=== PATIENT | female | born 1960 | race Caucasian/White ===

== ENCOUNTER 2020-01-16 10:00 | Inpatient (IN) | payer OTHER ==
[~2020-01-16] VITALS: Ht 165.1 cm; Wt 83.9 kg
[~2020-01-16 10:00] MED LIST: LEVOTHYROXINE 0.15MG PO; LITHIUM CARBON300 M3 PO; METFORMIN HCL500 MG PO; MOBIC7.5 MG PO; TRAZODONE HCL50 MG PO; XANAX1 MG PO
[2020-01-16 10:37] VITALS: BP 107/77
--- NOTE | 2020-01-16 13:00 | NUR ---
KANDI completed 96 hour hold documents for pt and faxed them to the pebbles and Walt Burk. Pt's 96 hour hold will January 23, 2020 @ 11:30 am. While KANDI was explaining to pt her rights, pt said she did not attempt to jump out of her car and wanted to contact her daughter Calista. SW did so, and Calista did not retract her statement and told pt that she believes she needs to be there. SW team will continue to follow pt during her stay on this unit.
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
[2020-01-16 20:56] VITALS: BP 144/81
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
[2020-01-17 04:55] VITALS: BP 144/81
[2020-01-17 06:25] LABS: HEMATOCRIT 39.9 % (37.0-47.0); HEMOGLOBIN 13.3 gm/dL (12.0-15.0); MCH 29.4 pg (26.0-34.0); MCHC 33.4 g/dL (28.0-37.0); MCV 87.9 fL (80.0-100.0); RBC 4.54 mil/uL (4.20-5.00); RDW 13.9 % (10.5-14.5); WBC 4.1 thou/uL (4.0-11.0)
[2020-01-17 06:43] LABS: CALCIUM 8.4 mg/dL (8.5-10.1); CREATININE 0.6 mg/dL (0.6-1.0); MAGNESIUM 1.8 mg/dL (1.8-2.4); POTASSIUM 3.1 mmol/L (3.5-5.1)
[2020-01-17 07:15] VITALS: BP 132/85
[2020-01-17 11:36] VITALS: BP 105/71
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
--- NOTE | 2020-01-17 15:06 | NUR ---
Patient's supply chain specialist met with pt. this afternoon.
--- NOTE | 2020-01-17 18:44 | NUR ---
Up ambulating in unit without s/o distress. Alert and orientated to self and place but not to time or situation. Does not think she needs to be here and wants to be discharged. Denies SI/HI. Paranoid about anyone/anything touching her or her medications/water stating it is contaminated. Refused all AM meds stating that she doesn't need them despite 3 approaches. Threw KCL in trash. 5 mg Haldol given IM per R deltoid with assistance of 3 staff. Did take KCL and Metformin with encouragement later in day. Breath sounds clear t/o. Reg HR auscultated. Color pink with brisk capillary refill and palpable peripheral pulses. No edema. Independent with voiding. Active bowel sounds over soft, rounded abdomen. Old circular healing lesions on buttocks and perineal area. States feet hurt but not enough to take medication. Peeling skin on arms and top of feet have fading sunburn. No s/o distress/agitation t/o day. Dr. Martinez ordered additional KCL. Clarified that she had taken 40meq KCL at 1330 PO. 1800 dose dced. Currently sleeping in room.
[2020-01-17 19:16] VITALS: BP 140/78
[2020-01-17 20:00] VITALS: BP 140/78
--- NOTE | 2020-01-17 23:50 | NUR ---
Assumed care of patient this pm shift. Patient sleeping in her room. Patient was rousable with verbal stimulation. Patient denies pain. Patient denies hi/si. Patient did not take night time medications and was given an im injection instead. Patients assessment shows clear breath sounds, active bowel sounds, and s1 s2 heard with auscultation. Patient very quiet this evening. Patient did get up and came to the dining room. Patient was asked to be dressed when she is interacting with staff and peers. We will continue to monitor per hospital protocol.
--- NOTE | 2020-01-18 07:58 | EKG ---
[facility] [place] [address] ELECTROCARDIOGRAM REPORT Name: ALVARO NATARAJAN [facility] IN M.R.#: [id number] Admission: 01/16/20 Attend Phys: Jose Juan Mohan DO Discharge: Date of : 64 Report #: [id number] THIS REPORT FOR: cc: FAM - Family physician unknown Yobani Larson Luis F. MD ~ THIS REPORT FOR: //name// [facility] Test Date: 2020-01-17 Test Time: 10:51:11 Pat Name: ALVARO NATARAJAN Department: Room: [facility] B Gender: F Hr Analyst: ZOE : 1960 Requested By: Devin Martinez Order Number: [id number] MD: Charles Oliver Measurements Intervals [place] Rate: 42 P: 9 ID: [id number] QRS: 21 QRSD: 95 T: 34 QT: 509 QTc: 426 Interpretive Statements Bradycardia with irregular rate Low voltage, extremity leads Compared to ECG 09/28/2016 16:47:36 Sinus rhythm no longer present ST (T wave) deviation no longer present Electronically Signed On 01-18-2020 7:57:08 CDT by Charles Oliver [email or web address] <ELECTRONICALLY SIGNED> By: Charles Oliver MD 01/18/20 0757 1051 1051 Charles Oliver MD /EPI
[2020-01-18 11:34] LABS: URINE BILIRUBIN NEGATIVE (Negative); URINE BLOOD NEGATIVE (Negative); URINE CLARITY CLEAR; URINE COLOR YELLOW; URINE GLUCOSE-RANDOM* NEGATIVE (Negative); URINE KETONES NEGATIVE (Negative); URINE LEUKOCYTES-REFLEX NEGATIVE (Negative); URINE NITRITE-REFLEX NEGATIVE (Negative); URINE PROTEIN (DIPSTICK) NEGATIVE (Negative); URINE SPECIFIC GRAVITY <= 1.005 (1.005-1.035); URINE UROBILINOGEN 0.2 E.U./dl (0.2-1.0)
--- NOTE | 2020-01-18 11:43 | NUR ---
PATIENT CARE ASSUMED AT 0700 - APPROACHED AND WAS SLEEPING. REFUSED AM MEDICATIONS. GUARDED AND RELUCTANT TO TALK TO STAFF. ADVISED DRJane ORDERED IM IF NON COMPLIANT - PATIENT CHOSE IM ABOVE MEDICATIONS. 7.5 MG. OF HALDOL ADMINISTERED IN LEFT DELTOID. TOLERATED WELL. DR. MIRANDA THEN PLACED SUPPLEMENT ORDER AND PATIENT TAKEN ADVISED. PATIENT COMPLAINED OF URINARY DISCOMFORT AND SPECIMEN TAKEN AND SENT DOWN TO LAB - PATIENT HAS REFUSED VITALS AND UNWILLING TO HAVE ID BRACELT PUT ON WELL. AFFECT FLAT AND BLUNTED AND MOOD DETACHED AND RESISTIVE. WILL CONTINUE TO ENCOURAGE MED COMPLIANCE AND REASSURANCE WITH CARES NEEDED.
--- NOTE | 2020-01-18 12:54 | NUR ---
KANDI spoke with Cristobal about the emergency d/c that [facility] issues pt dated 01/17/2020. She told SW that BM can do that, and even issue the notice while pt is in the hospital. She also said that since they are a [facility] they are not responsible for finding pt a place to live. However, should pt no longer meet criteria on this unit and [facility] does not accept pt, then pt can go back to facility and remain there for the remainder of the 30 days. They cannot deny her from doing so. If she appeals this matter, then she can remain at that facility until her hearing. SW team will continue to follow pt during her stay on this unit.
[2020-01-18 19:45] VITALS: BP 139/90
[2020-01-18 22:00] VITALS: BP 139/90
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
--- NOTE | 2020-01-19 03:14 | NUR ---
Assumed care of patient this pm shift. Patient laying in bed at the start of the shift. Patient denies hi/si. Patient is resistant with haldol in pill form and recieved an im injection instead. Patient is alert and oriented to self and where she is. Patient shows no signs of acute distress. Patients assessment shows clear breath sounds, active bowel sounds, and s1 s2 heard with auscultation. Patient is relatively irritable. Patients affect is flat. We will continue to monitor per hospital policy.
[2020-01-19 08:00] VITALS: BP 127/72
[2020-01-19 08:24] VITALS: BP 127/72
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
--- NOTE | 2020-01-19 09:28 | NUR ---
THIS SAND SLINGER AND ANOTHER NURSE WENT TO ROOM WITH SHOT AND PO FORM OF HALDOL. PT DID TAKE PO FORM OF HALDOL AND ALSO VIT B PO.
--- NOTE | 2020-01-19 17:13 | NUR ---
PT TOOK METFORMIN MED. PT SAID WELL LONG IT IS THE MED YOU SAID IT WAS.
[2020-01-19 19:32] VITALS: BP 137/79
--- NOTE | 2020-01-19 23:18 | NUR ---
Assumed care on 01/19/20 @ 19:15, in her room, A&Ox3. Compliant with p.o. meds. HRRR, Lungs CTA all ndiaye, ABD N, patient could not say if she had had a bm today. Ambulates without device, up ad mariluz. In bed eyes closed at this writing, respirations even and unlabored, bed in low position. Will continue to monitor q 12 minutes for patient safety.
--- NOTE | 2020-01-20 06:08 | NUR ---
SLEPT WELL OVERNIGHT, TOTAL OF 7.8 HOURS SLEEP.
[2020-01-20 08:50] VITALS: BP 124/74
--- NOTE | 2020-01-20 09:40 | NUR ---
Assumed cre 0700. Paranoid of staff bringing AM meds. Somewhat sarcastic. Did not like talking through the bathroom door.
--- NOTE | 2020-01-20 14:26 | NUR ---
Continues talking to herself to imaginary people. Received phone call from her mother when asked how she got along with her mother she replied she didn't get along with her mother jean claude thought she knew everythng and she doesn't. Said she was not able to eat the open faced roast beef sandwich. Yet she declined to have pureed food sent to her. She wanted cheesecake on her carb controlled diet-that would not be sent up. Was offered yogurt and declined.
--- NOTE | 2020-01-20 15:42 | NUR ---
KANDI invited pt to participate in group today. Pt declined stating she just wants to go home. She later returned stating SW had asked so nicely she thought she would come back. KANDI offered to speak to pt 1:1. Pt declined.
[2020-01-20 19:20] VITALS: BP 131/58
--- NOTE | 2020-01-20 21:40 | NUR ---
Care assumed of patient at 1915: Patient seated in dayroom, reading the newspaper at start of shift. Patient initially calm, pleasant and cooperative during assessment. Patient alert and oriented to person and place. Poor insight and judgement regarding hospitalization. Patient denies pain or discomfort. Denies SI/HI/AH/VH. Denies depression and anxiety. No s/s of paranoia or delusional behaviors. Patient kindly asked for the phone and was assisted in calling her mother. Ate 100% HS snack. Interacting well with staff. Not much interaction with peers observed. Patient retired to bed rather early and was presented with HS medication. Patient stated that she wanted a copy of the doctors order, states that she didn't hire a doctor. Avoiding taking the medication. Became irritable when discussing ordered medication by MD. Copy of orders were not provided. Nurse started to speak with patient about the call with her mother and patient reached up, took the medication cup and took them without issue with 120cc of water. Patient blocking any explanation regarding diagnoses, medication and cause of hospitalization. Patient ate 100% HS snack. Nurse thanked patient. Patient stated "good night" then went to sleep without difficulty. Patient resting quietly in bed at this time.
--- NOTE | 2020-01-21 05:59 | NUR ---
ASSUMED PT'S CARE AT ABOUT MIDNIGHT. PT CONTINUED TO SLEEP IN BED. WILL CONTINUE TO MONITOR.
[2020-01-21 06:40] VITALS: BP 80/42
[2020-01-21 07:50] VITALS: BP 126/65
[2020-01-21 08:00] VITALS: BP 126/65
--- NOTE | 2020-01-21 08:43 | NUR ---
PT IN ROOM AFTER BREAKFAST. PT DENIES PAIN. PT STATED THAT HER HANDS GET STIFF AT TIMES AND HELPS WHEN WORKING FINGERS OUT. PT ORIENTED X3. PT STATED SHE TAKES LITHIUM AND VALIUM AT HOME. PT DID HAVE THOSE MEDS ON MED PROFILE. PT DID TAKE HALDOL FOR THIS WAREHOUSE WORKER PO.
--- NOTE | 2020-01-21 14:21 | NUR ---
Pt scheduled for discharge on 01/22 as her hold expires this date at 11:30 am. Per KANDI note, [facility] is refusing to allow pt to return. KANDI notified Dept Home Performance Consultant Teresa who followed up with the [facility].
--- NOTE | 2020-01-21 16:34 | NUR ---
KANDI received a message from Jeanna with [facility] [phone]. KANDI attempted to call her back but got voicemail.
[2020-01-21 20:18] VITALS: BP 133/70
[2020-01-21 22:00] VITALS: BP 133/70
--- NOTE | 2020-01-22 04:14 | NUR ---
Assumed care of patient this pm shift. Patient sitting in mileu with peers. Patient very pleasant and cooperative this evening. Patients affect blunted. Patient alert and oriented x3. Patient takes medications whole with thin fluids. Patient is ambulatory and not a falls risk. Patients assessment shows clear breath sounds, active bowel sounds, and s1 s2 heard with auscultation. Patient denies pain. Patient denies hi/si. Patient denies avh. Patient is continent of bowel and bladder. We will continue to monitor per hospital protocol.
[2020-01-22 09:09] VITALS: BP 135/55
--- NOTE | 2020-01-22 10:07 | NUR ---
A call came in to the nursing station for nurse Adri; a return call from [facility] when she attempted to call and give report. On the phone was a staff member named Magui, who said she is the admin for the building, stated she was returning Adri's call and that pt is not welcomed in the building. KANDI identified as pt's SW and explained her convo with the ombudsmans Tuesday. Magui said she was just told by her regional they are not accepting pt. SW explained that legally pt did appeal this decision while she resided at [facility]. Magui stated "well she did not appeal this latest notice yet." SW explained that this is not the hospital's role. Magui hung up on SW. [facility] could not remember staff member's name. Magui was calmer and SW gave her the full scope of what happend Tuesday. Magui said " I don't understand how a psych unit can release her when she is a safety risk here and is not taking her meds there." KANDI explained that pt has the right to refuse any tx including medication administration. SW did update her on pt taking her meds at minimum today and yesterday. She stated that it was only 2 days and that isn't enough. SW explained that she understands, but that pt simply has the right to refuse her meds, and that to force her to do so without guardianship and without any other legal enforcers would be a rights restriction that is in violation of her rights. Magui stated that she must do what her home office states. KANDI explained she understands, but that the hospital is not the place for this coronado. KANDI also told her a tid bit that worked with her in working with pt, is explaining to her that she will be homeless soon if she does not take her meds and stop with the behaviors. KANDI explained that at that time pt seemed to cognitively understand what she was saying and made the decision to take her meds. KANDI asked Magui aside from the orders she was given, what could SW do to make this better? What would she want to see? Magui then said " I don't know but my staff fear her. I need to let you go, my boss is calling on the other line." She then ended the conversation.
[2020-01-22] MEDS ORDERED: HALOPERIDOL 5 MG5 MG PO (11:53)
[2020-01-22] MEDS ORDERED: MOBIC15 MG PO (11:54)
[2020-01-22] MEDS ORDERED: GLUCOPHAGE500 MG PO (11:55)
[2020-01-22] MEDS ORDERED: B-12500 MCG PO (11:56)
[2020-01-22] MEDS ORDERED: VITAMIN D21250 MC1 PO (11:56)
[2020-01-22] MEDS ORDERED: SYNTHROID75 MCG PO (11:56)
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
--- NOTE | 2020-01-22 16:21 | NUR ---
DISCHARGE ISTRUCTIONS REVIEWED WITH PATIENTINCLUDING MEDICATIONS,RX PROVIDED,FOLLOW UP RECOMMENDATIONS ETC. IS IRRITABLE THROUGHOUT DC PROCESS INSISTING HER DAUGHTER WAS DOWNSTAIRS AND NURSING STAFF WAS LYING TO HER. STATES SHE IS SUPPOSED TO BE TAKING LITHIUM-NOT HALDOL. DID SIGN DC INSTRUCTIONS STATING "I'M GOING TO TALK TO THE DR ABOUT IT YOU DON'T KOW ANYTHING" PERSONAL BELONGINGS SECURED . DENIES SI/SH/HI. GAIT STEADY AND DENIES COMPLAINTS AT TIME OF DC
--- NOTE | 2020-01-22 19:38 | NUR ---
PT'S DTR LILO NATARAJAN CAME @ 1915 IN FRONT OF ER ENTRANCE TO PICK PT UP. PT AMBULATED DOWN TO ER EXIT ACCOMPANIED BY NURSING TO MEET WITH DTR. ENVELOPED PAPER WORK ADDRESSED TO DTR HANDED TO DTR. DTR EXPRESSED CONCERN THAT THE LONG TERM MAY NOT TAKE HER MOM BACK THEY HAVE EXPRESSED THE DESIRE NOT TO HAVE HER BACK. DTR ALSO VOICED THAT [facility], [facility] SHOULD NOT REFUSE HER. PT LEFT IN THE CAR WITH HER BELONGINGS.
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
== END 2020-01-22 19:15 | DRG 885 ==
LOC: SBH 10:00
PROVIDERS: Internal Medicine; ADMIT Psychiatry & Neurology Psychiatry; ATTEND Psychiatry & Neurology Psychiatry
DX: F20.9 Schizophrenia, unspecified (principal); E11.9 Type 2 diabetes mellitus without complications; M06.9 Rheumatoid arthritis, unspecified; J44.9 Chronic obstructive pulmonary disease, unspecified; I10 Essential (primary) hypertension; E78.5 Hyperlipidemia, unspecified; F31.9 Bipolar disorder, unspecified; E03.9 Hypothyroidism, unspecified; M79.7 Fibromyalgia; E87.6 Hypokalemia; Z79.84 Long term (current) use of oral hypoglycemic drugs
CPT/HCPCS: 10880